=== PATIENT | male | born 1950 | race Two or more races ===

== ENCOUNTER 2021-04-13 22:57 | Emergency (ER) | payer MEDICARE, OTHER ==
[~2021-04-13] VITALS: Ht 170.2 cm; Wt 63.6 kg
[2021-04-13 23:43] VITALS: BP 149/81
== END 2021-04-14 00:01 | disposition home or self-care (01) ==
LOC: EMS 23:08
DX: L02.416 Cutaneous abscess of left lower limb (principal); F17.210 Nicotine dependence, cigarettes, uncomplicated
CPT/HCPCS: 99281; Z7502